=== PATIENT | male | born 1975 | race Hispanic/Latino ===

== ENCOUNTER 2016-06-11 09:59 | Emergency (ER) | payer BC ==
[2016-06-11 10:08] VITALS: BP 124/99; PULSE 75; RESP 18; TEMP 98; O2SAT 98
--- NOTE | 2016-06-11 10:13 | ED PDOC ---
HPI: Wound Care - HPI Time Seen by Provider: 06/11/16 10:13 Chief Complaint (Nursing): Bite Chief Complaint (Provider): dog bite to leg History Per: Patient History Of Present Illness: 40 year old male presents to ED with laceration to right leg status post being bit by a dog about one hour prior to arrival. Patient states he tried to prevent a dog from attacking his dog causing him to get bit in the process. The patient did speak to the torch cutter of the dog that bit him and the torch cutter states that the dog is up-to-date with all vaccinations. Patient is not sure of his last tetanus. He denies any acute pain, numbness or tingling upon arrival. Past Medical History Reviewed: Historical Data, Nursing Documentation, Vital Signs Vital Signs: Last Vital Signs Temp 98 F 06/11/16 10:04 Pulse 75 06/11/16 10:04 Resp 18 06/11/16 10:04 BP 124/99 H 06/11/16 10:04 Pulse Ox 98 06/11/16 10:04 - Medical History PMH: No Chronic Diseases, Diabetes - Surgical History Other surgeries: right shoulder surgery - Family History Family History: States: No Known Family Hx - Living Arrangements Living Arrangements: With Family - Social History Current smoker - smoking cessation education provided: No Alcohol: Social Drugs: Denies - Immunization History Hx Tetanus Toxoid Vaccination: No (not sure of last tetanus booster) - Home Medications Home Medications: Ambulatory Orders Medication Instructions Recorded Amoxicillin/Clavulanate [Augmentin 1 tab PO BID #14 tab 06/11/16 875 MG-125 MG] - Allergies Allergies/Adverse Reactions: Allergies Allergy/AdvReac Type Severity Reaction Status Date / Time No Known Allergies Allergy Verified 06/11/16 10:11 Review of Systems ROS Statement: Except As Marked, All Systems Reviewed And Found Negative Musculoskeletal: Positive for: Other (laceration to right leg, dog bite) Physical Exam - Reviewed Nursing Documentation Reviewed: Yes Vital Signs Reviewed: Yes - Physical Exam Appears: Positive for: Well, Non-toxic, No Acute Distress Eye Exam: Positive for: Normal appearance Extremity: Positive for: Other (1.5 cm superficial laceration noted to right mid block, no active bleeding, N/V intact; additional 2 cm avulsion laceration with superficial skin layer completely avulsed and 2 adjacent puncture wounds noted to lateral aspect of right lower leg, mild active bleeding, N/V intact, normal distal sensation, full rom of right knee and ankle) Neurologic/Psych: Positive for: Alert, Oriented - ECG O2 Sat by Pulse Oximetry: 98 Pulse Ox Interpretation: Normal Medical Decision Making Medical Decision Making: Impression: Dog bite to right leg Plan: PO augmentin initial dose Tetanus booster Patient made aware that sutures are not indicated secondary to increased risk of infection as lacerations are result of a dog bite. Procedure Note: Wounds were copiously irrigated with normal saline and Betadine , excess subcutaneous tissue was excised from avulsion laceration. Bacitracin and nonstick gauze applied to open wounds, secured with sterile gauze wrap, neurovascular intact status post placement. Patient was given detailed wound care instructions. Prescription given for Augmentin and Motrin. Advised wound recheck in 1-2 days. Disposition - Clinical Impression Clinical Impression: Animal bite wound, Skin avulsion, Puncture wound - Patient ED Disposition Is Patient to be Admitted: No Counseled Patient/Family Regarding: Diagnosis, Need For Followup, Rx Given - Disposition Referrals: [facility] [Outside] Disposition: Routine/Home Disposition Time: 11:04 Condition: STABLE Additional Instructions: Wash wounds daily with soap and water and reapply bacitracin and gauze wrap. Keep wounds clean and dry. Take antibiotics as directed. Take [id number] Tylenol or Advil for pain as needed. Follow-up with primary doctor in 1-2 days for wound reevaluation or return to ED any time if acutely worse. Prescriptions: Amoxicillin/Clavulanate [Augmentin 875 MG-125 MG] 1 tab PO BID #14 tab Instructions: Animal Bite (ED), Diphtheria/Acellular Pertussis/Tetanus Booster Vaccine (Tdap) (Injection), Skin Avulsion (ED), Puncture Wound (ED)
[2016-06-11] MEDS ORDERED: Amoxicillin-Clav 875-125 mg Tab PO STA (10:50)
[2016-06-11] MEDS ORDERED: TDAP Vaccine 0.5 mL Syr IM ONE (10:50)
[2016-06-11] MEDS ORDERED: GlipiZIDE 5 mg SR Tab PO STA (11:01)
[2016-06-11] MEDS ORDERED: Amoxicillin-Clav 875-125 mg Tab PO ONE (11:12)
[2016-06-11] MEDS ORDERED: Absorbable Gelatin Sponge Size 12-7 ONE (11:12)
== END 2016-06-11 11:30 | disposition home or self-care (01) ==
LOC: H.ER 09:59
DX: S81.851A Open bite, right lower leg, initial encounter (principal); W54.0XXA Bitten by dog, initial encounter; Y93.89 Activity, other specified; Y92.89 Other specified places as the place of occurrence of the external cause; Z23 Encounter for immunization